=== PATIENT | female | born 1955 | race Two or more races ===

== ENCOUNTER 2025-05-18 14:55 | Emergency (ER) | payer OTHER, BC ==
[~2025-05-18] VITALS: Ht 152.4 cm; Wt 72.6 kg
[2025-05-18] MEDS ORDERED: PROTONIX20 MG PO (15:32)
[2025-05-18] MEDS ORDERED: COZAAR100 MG PO (15:32)
[2025-05-18] MEDS ORDERED: ROSUVASTATIN CA10 MG PO (15:33)
[2025-05-18] MEDS ORDERED: FLEXERIL (15:33)
[2025-05-18] MEDS ORDERED: FAMOTIDINE/PF 20 MG/2 ML VIAL IV STA (15:40)
[2025-05-18] MEDS ORDERED: DICYCLOMINE HCL 20 MG TABLET PO STA (15:40)
[2025-05-18] MEDS ORDERED: 0.9 % SODIUM CHLORIDE 1,000 ML IV STA (15:41)
[2025-05-18] MEDS ORDERED: KETOROLAC TROMETHAMINE 15 MG VIAL IM STA (15:41)
[2025-05-18 17:27] LABS: BASO % 0.2 % (0.1-1.2); EOS # 0.13 (0.04-0.54); EOS % 2.6 % (0.7-7.0); LYMPH # 1.16 (1.18-3.74); LYMPH % 23.6 % (19.3-53.1); MEAN PLATELET VOLUME 10.40 fl (9.4-12.4); MONO # 0.38 (0.24-0.82); MONO % 7.7 % (4.7-12.5); NEUT # 3.22 (1.56-6.13); NEUT % 65.5 % (34.0-71.1); RED CELL DISTRIBUTION WIDTH 12.5 % (11.6-14.4)
[2025-05-18 18:13] LABS: ALT/SGPT 41.0 U/L (12-78); AST/SGOT 29.0 U/L (15-37); BILIRUBIN TOTAL 0.57 mg/dL (0.3-1.2); BUN CREA RATIO 12.0 (7.0-25.0); CREATININE SERUM 1.07 mg/dL (0.55-1.02); GFR 50.99; GLOBULINA 2.9 G/DL (2.4-3.5); GLUCOSE FASTING 106.0 mg/dL (65-100); OSMOLALITY SERUM 282.0 MOSM/KG (275-295); TSH 2.4 uIU/mL (0.358-3.74)
[2025-05-18] MEDS ORDERED: PEPCID AC20 MG PO (18:41)
[2025-05-18] MEDS ORDERED: INTESTINEX680 M1 PO (18:41)
[2025-05-18] MEDS ORDERED: CIPRO500 MG PO (18:41)
[2025-05-18] MEDS ORDERED: DICY20TA PO (18:41)
== END 2025-05-18 22:22 | disposition home or self-care (01) ==
LOC: ER 14:55
PROVIDERS: General Practice
DX: A08.8 Other specified intestinal infections (principal); R10.9 Unspecified abdominal pain; R55 Syncope and collapse; R53.1 Weakness; R42 Dizziness and giddiness; I10 Essential (primary) hypertension; Z88.5 Allergy status to narcotic agent
CPT/HCPCS: 36415; 93005; 96365; 96366; 96372; 99282; J1885; J3490; J7030